=== PATIENT | female | born 1995 | race Caucasian/White ===

== ENCOUNTER 2020-01-15 16:50 | Emergency (ER) | payer BC, SELFPAY ==
[2020-01-15 16:56] VITALS: BP 131/79; PULSE 85; RESP 20; TEMP 36.3; O2SAT 99
[2020-01-15] MEDS: Tetracaine 0.5% 4 ML BTL (17:06)
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
[2020-01-15] MEDS: Erythromycin Ophth Oint 3.5 GM TUBE OD (18:40)
[2020-01-15] MEDS: Fluorescein STRIPS 100/BOX 1 MG (18:41)
[2020-01-15] MEDS: Lactated Ringers 1,000 ML 3000 ML UD (18:42)
== END 2020-01-15 19:40 | disposition home or self-care (01) ==
PROVIDERS: Emergency Provider Nurse Practitioner Acute Care
DX: T54.3X1A Toxic effect of corrosive alkalis and alkali-like substances, accidental (unintentional), initial encounter (principal); T26.81XA Corrosions of other specified parts of right eye and adnexa, initial encounter
CPT/HCPCS: 99284; 99283